=== PATIENT | male | born 2000 | race Caucasian/White ===

== ENCOUNTER 2024-08-19 10:59 | Inpatient (IN) | payer OTHER ==
[~2024-08-19] VITALS: Ht 188 cm; Wt 88.8 kg
[2024-08-19] MEDS: ONDANSETRON 4MG 2ML VIAL IV ONE (13:20)
[2024-08-19] MEDS: MORPHINE 2 MG/ML 1 ML VIAL IV PRN (13:34)
[2024-08-19] MEDS: KETOROLAC 30 MG/ML 1 ML VIAL IV ONE (14:19)
[2024-08-19] MEDS ORDERED: IBUP200C25 PO (14:42)
[2024-08-19] MEDS ORDERED: HOME MED LIST COMPLETE! XX SCH (14:45)
[2024-08-19] MEDS ORDERED: PERCOCET 5MG/325MG TAB PO ONE (20:00)
[2024-08-19] MEDS: HYDROMORPHONE HCL 0.5 MG/0.5 ML SYRINGE IV ONE (23:24)
[2024-08-19 23:28] LABS: BASO # 0.0 10^3/uL (0.0-0.2); BASO % 0.1 % (0.0-1.0); EOS # 0.0 10^3/uL (0.0-0.5); EOS % 0.0 % (0.0-3.0); LYMPH # 0.5 10^3/uL (1.5-5.0); LYMPH % 6.4 % (24.0-44.0); MONO # 0.1 10^3/uL (0.0-0.8); MONO % 1.1 % (2.0-8.0); NEUTROPHILS # 6.9 10^3/uL (1.5-8.5); NEUTROPHILS % 92.0 % (36.0-66.0); PLATELET COUNT, AUTOMATED 273 10^3/uL (150-450)
[2024-08-19 23:43] LABS: INR 0.93
[2024-08-19 23:47] LABS: CALCIUM LEVEL 9.2 MG/DL (8.5-10.1); CARBON DIOXIDE LEVEL 24 MMOL/L (20-31); CHLORIDE LEVEL 106 MMOL/L (98-107); CREATININE FOR GFR 0.82 MG/DL (0.70-1.30); GLOMERULAR FILTRATION RATE > 90.0 (>60); POTASSIUM SERUM 4.3 MMOL/L (3.5-5.1); SODIUM LEVEL 142 MMOL/L (136-145)
[2024-08-20] MEDS: HYDROMORPHONE HCL 0.5 MG/0.5 ML SYRINGE IV PRN ×3 (03:29→20:45)
[2024-08-20] MEDS ORDERED: KETOROLAC 30 MG/ML 1 ML VIAL IV PRN (03:50)
[2024-08-20] MEDS ORDERED: ONDANSETRON 4MG 2ML VIAL IV PRN (03:50)
[2024-08-20 06:24] LABS: PLATELET COUNT, AUTOMATED 286 10^3/uL (150-450)
[2024-08-20] MEDS: ACETAMINOPHEN 500 MG TAB PO SCH (07:06)
[2024-08-20 07:09] LABS: CALCIUM LEVEL 9.2 MG/DL (8.5-10.1); CARBON DIOXIDE LEVEL 27 MMOL/L (20-31); CHLORIDE LEVEL 102 MMOL/L (98-107); CREATININE FOR GFR 0.79 MG/DL (0.70-1.30); GLOMERULAR FILTRATION RATE > 90.0 (>60); POTASSIUM SERUM 4.4 MMOL/L (3.5-5.1); SODIUM LEVEL 140 MMOL/L (136-145)
[2024-08-20 08:00] VITALS: TEMP 98.2
[2024-08-20 12:00] VITALS: BP_SYST 110; BP_SYST 112; BP_DIAS 70; BP_DIAS 74; TEMP 98; O2SAT 96
[2024-08-20 16:00] VITALS: BP 112/77; TEMP 98
[2024-08-20 17:03] VITALS: BP 134/80; TEMP 98.1
[2024-08-20 20:15] VITALS: BP 155/96; TEMP 98.6; O2SAT 96
[2024-08-21] VITALS (9 sets, daily range): BP systolic 107–141; BP diastolic 64–93; TEMP 97.7–98.8; O2SAT 96–99
[2024-08-21 07:06] LABS: PLATELET COUNT, AUTOMATED 203 10^3/uL (150-450)
[2024-08-21 07:26] LABS: CALCIUM LEVEL 8.7 MG/DL (8.5-10.1); CARBON DIOXIDE LEVEL 29 MMOL/L (20-31); CHLORIDE LEVEL 104 MMOL/L (98-107); CREATININE FOR GFR 1.03 MG/DL (0.70-1.30); GLOMERULAR FILTRATION RATE > 90.0 (>60); POTASSIUM SERUM 4.4 MMOL/L (3.5-5.1); SODIUM LEVEL 144 MMOL/L (136-145)
[2024-08-21] MEDS: NS (Normal Saline) 0.9% 1,000 ML IV SCH (11:01)
[2024-08-21] MEDS ORDERED: ONDANSETRON 4MG 2ML VIAL As Ordered ONE (13:00)
[2024-08-21] MEDS ORDERED: ROCURONIUM BROMIDE 50MG/5ML VIAL As Ordered ONE (13:00)
[2024-08-21] MEDS ORDERED: LIDOCAINE 2% 100 MG/5 ML SDV (FOR ANES.) As Ordered ONE (13:00)
[2024-08-21] MEDS ORDERED: GLYCOPYRROLATE INJ 0.2 MG/ML 2 ML VIAL As Ordered ONE (13:00)
[2024-08-21] MEDS ORDERED: SUGAMMADEX SODIUM 500 MG/5 ML VIAL As Ordered ONE (13:00)
[2024-08-21] MEDS ORDERED: dexAMETHasone 4 MG/ML 1 ML VIAL As Ordered ONE (13:00)
[2024-08-21] MEDS ORDERED: MIDAZOLAM INJ 2 MG/2 ML VIAL As Ordered ONE (13:05)
[2024-08-21] MEDS: THROMBIN 5,000 UNITS VIAL As Ordered ONE (14:12)
[2024-08-21] MEDS ORDERED: HYDROmorphone HCL 2 MG/ML 1 ML VIAL As Ordered ONE (14:22)
[2024-08-21] MEDS ORDERED: PHENYLephrine 500MCG 5ML (100MCG/ML) SYRINGE As Ordered ONE (14:57)
[2024-08-21] MEDS ORDERED: ACETAMINOPHEN 1000MG/100ML IV BAG As Ordered ONE (15:27)
[2024-08-21] MEDS: methylPREDNISolone SUSP 40 MG/ML 1 ML VIAL As Ordered ONE (16:40)
[2024-08-21] MEDS ORDERED: ONDANSETRON 4MG 2ML VIAL IV PRN (17:55)
[2024-08-21] MEDS: LR 1,000 ML IV SCH (17:55)
[2024-08-21] MEDS: HYDROMORPHONE HCL 0.5 MG/0.5 ML SYRINGE IV PRN (18:33)
[2024-08-21] MEDS: DOCUSATE SODIUM 100 MG CAPSULE PO SCH (21:07)
[2024-08-21] MEDS: ceFAZolin SODIUM 2 GM in DEXTROSE 5% (D5W) ADV/MINI-BAG 50 ML IV SCH (22:44)
[2024-08-22 00:05] VITALS: BP 123/63; TEMP 98.1; O2SAT 98
[2024-08-22] MEDS: CYCLOBENZAPRINE 5 MG TABLET PO PRN (00:45)
[2024-08-22 01:35] VITALS: BP 129/76; TEMP 97.7; O2SAT 98
[2024-08-22 04:00] VITALS: BP 141/86; TEMP 97.9; O2SAT 99
[2024-08-22 04:05] VITALS: BP 141/86; TEMP 97.9; O2SAT 99
[2024-08-22 05:38] LABS: PLATELET COUNT, AUTOMATED 253 10^3/uL (150-450)
[2024-08-22 06:05] LABS: CALCIUM LEVEL 8.6 MG/DL (8.5-10.1); CARBON DIOXIDE LEVEL 26 MMOL/L (20-31); CHLORIDE LEVEL 102 MMOL/L (98-107); CREATININE FOR GFR 0.87 MG/DL (0.70-1.30); GLOMERULAR FILTRATION RATE > 90.0 (>60); POTASSIUM SERUM 4.0 MMOL/L (3.5-5.1); SODIUM LEVEL 141 MMOL/L (136-145)
[2024-08-22 08:28] VITALS: BP 118/55; TEMP 97.9; O2SAT 100
[2024-08-22] MEDS: SENNA 8.6 MG TAB PO SCH (08:59)
[2024-08-22] MEDS ORDERED: ACETAMINOPHEN 325 MG TAB PO PRN (10:40)
[2024-08-22] MEDS ORDERED: OXYC-517 PO (11:05)
[2024-08-22] MEDS ORDERED: CYCL5TAB4 PO (11:05)
[2024-08-22] MEDS ORDERED: ACET-897 PO (11:05)
[2024-08-22 12:12] VITALS: BP 125/63; TEMP 97.7; O2SAT 98
[2024-08-22] MEDS ORDERED: HEPARIN SOD 5000 UNITS/ML 1 ML VIAL/SYRINGE SQ SCH (21:00)
== END 2024-08-22 12:56 | disposition home or self-care (01) | DRG 519 ==
LOC: M ED 10:59 → M ED INP 08-20 03:48 → M MSPAV 08-20 16:51
PROVIDERS: ADMIT Student in an Organized Health Care Education/Training Program; ATTEND Internal Medicine
PROC: 0SB20ZZ Excision of Lumbar Vertebral Disc, Open Approach (ICD-10-PCS; principal; 2024-08-21 08:30)
DX: M51.26 Other intervertebral disc displacement, lumbar region (principal); G83.4 Cauda equina syndrome